=== PATIENT | male | born 1995 | race African-American/Black ===

== ENCOUNTER 2020-05-11 03:05 | Emergency (ER) | payer SELFPAY ==
[~2020-05-11] VITALS: Ht 182.9 cm; Wt 81.6 kg
--- NOTE | 2020-05-11 03:05 | NUR ---
PT HUGO ALS. TAKEN TO BED 4
[2020-05-11 03:11] VITALS: BP 116/50
[2020-05-11] MEDS ORDERED: ONDANSETRON 4 MG/2 ML VIAL IVP ONE (03:15)
[2020-05-11] MEDS ORDERED: NACL 0.9% 1,000 ML IV ONE (03:15)
--- NOTE | 2020-05-11 03:18 | NUR ---
24 Y/O MALE BIBA C/O VOMITTNG X1 HOUR S/P INGESTION OF BURRITO AT GAS STATION. PT ADMITS TO SMOKING MARIJUANA. 5 EPISODES OF NAUSEA/VOMITTUS EN ROUTE TO HOSPITAL. PT STATES 4/10 SHARP ABD PAIN. PT C/O SOB. O2 SAT 100% ON ROOM AIR. LUNG SOUNDS CLA. ABD SOFT NON TENDER. MEDHX- ASHTMA NKA
--- NOTE | 2020-05-11 03:20 | NUR ---
LAB AT BEDSIDE
--- NOTE | 2020-05-11 03:21 | NUR ---
Dr. Rubio examining patient.
--- NOTE | 2020-05-11 03:40 | NUR ---
LABS DRAWN AND SENT TO LAB
[2020-05-11 04:02] LABS: MEAN CORPUSCULAR HGB CONC 34 g/dL (33-37)
[2020-05-11 04:07] LABS: HEMATOCRIT 41.4 % (36-52); MEAN CORPUSCULAR HEMOGLOBIN 33 pg (27-31); MEAN CORPUSCULAR VOLUME 96.5 fL (80-94); PLATELET COUNT (AUTO) 354 K/uL (140-450); RED BLOOD CELL COUNT(AUTO) 4.29 MIL/uL (4.20-6.10); RED CELL DISTRIBUTION WIDTH 12.9 % (11.6-13.7); WHITE BLOOD COUNT (AUTO) 6.8 K/uL (4.8-10.8)
[2020-05-11 04:11] LABS: EOSINOPHILS % (MANUAL) 5 % (0-4); LYMPHOCYTES % (MANUAL) 10 % (20-46); MONOCYTES % (MANUAL) 6 % (5-12)
[2020-05-11 04:24] LABS: ALBUMIN 4.3 g/dL (3.4-5.0); ANION GAP 11.8 (8-16); CARBON DIOXIDE 28.7 mmol/L (21-32); CREATININE 0.9 mg/dL (0.6-1.3); POTASSIUM 3.5 mmol/L (3.5-5.1)
--- NOTE | 2020-05-11 04:54 | NUR ---
PT REFUSING TO PROVIDE URINE AT THIS TIME, NIESHA MADE AWARE.
--- NOTE | 2020-05-11 06:23 | NUR ---
Dr. Rubio re-examining patient.
--- NOTE | 2020-05-11 06:27 | NUR ---
PT REQUESTING FOR WATER, PER ERMD OKAY TO GIVE. PT TOLERATED WELL.
[2020-05-11 06:47] VITALS: BP 122/50
--- NOTE | 2020-05-11 06:47 | NUR ---
Kathya cabral in EDM - 05/11/20 at 0713 by [email or web address] Patient discharged with v/s stable. Written and verbal after care instructions given and explained. Patient verbalized understanding. Ambulatory with steady gait. All questions addressed prior to discharge. Advised to follow up with PMD.
== END 2020-05-11 06:47 | disposition home or self-care (01) ==
LOC: MED 03:05
DX: R11.10 Vomiting, unspecified (principal); R46.1 Bizarre personal appearance; F15.10 Other stimulant abuse, uncomplicated
CPT/HCPCS: 36415; 80053; 83690; 85025; 96361; 96374; 99283; J2405